=== PATIENT | female | born 1940 | race Caucasian/White ===

== ENCOUNTER 2018-02-13 17:10 | Emergency (ER) | payer OTHER ==
[~2018-02-13] VITALS: Ht 152.4 cm; Wt 94.3 kg
[~2018-02-13 17:10] MED LIST: NOHOMEMEDS
[2018-02-13 19:45] LABS: APPEARANCE CLOUDY ((CLEAR)); BILIRUBIN NEGATIVE; BLOOD MODERATE; COLOR YELLOW ((YELLOW)); GLUCOSE (STRIP) NEGATIVE; KETONES NEGATIVE; LEUKOCYTES LARGE; NITRITE NEGATIVE; PROTEIN (STRIP) 100; SPECIFIC GRAVITY 1.014 (1.000-1.030); UROBILINOGEN 0.2 MG/DL (0.2-1.0)
[2018-02-13 20:07] LABS: BACTERIA RARE /HPF; EPITHELIAL CELLS RARE /HPF; MUCUS TRACE /LPF; RED BLOOD CELLS 40-50 /HPF (0-5); WHITE BLOOD CELLS TNTC /HPF (0-5)
[2018-02-13 20:09] LABS: HEMATOCRIT 39.8 % (36.0-46.0); HEMOGLOBIN 13.5 G/DL (11.9-15.5); MCH 29.3 PG (29.0-34.0); MCHC 33.9 G/DL (30.0-36.0); MCV 86.5 FL (83-99); PLATELET COUNT 219 K/uL (156-360); RBC DIS.WIDTH-CV 13.6 % (11.8-14.6); RBC DIS.WIDTH-SD 42.3 % (39-53); WHITE BLOOD COUNT 8.9 K/uL (4.1-10.2)
[2018-02-13 20:26] LABS: CHLORIDE 102 mEq/L (99-109); POTASSIUM 4.5 mEq/L (3.7-5.4); SODIUM 139 mEq/L (136-147)
[2018-02-13 20:28] LABS: GLUCOSE 164 mg/dL (70-99)
[2018-02-13 20:32] LABS: CREATININE 0.8 mg/dL (0.6-1.3); GFR ESTIMATE (CALCULATED) > 59 mL/min/
[2018-02-13 20:35] LABS: UREA NITROGEN (BUN) 18 mg/dL (9-23)
[2018-02-13] MEDS ORDERED: BACTRIM,SEPT1 TABLET PO (21:01)
[2018-02-13] MEDS ORDERED: MECLIZINE HCL25 MG PO (21:01)
[2018-02-13 21:20] VITALS: BP 125/79
== END 2018-02-13 21:33 | disposition home or self-care (01) ==
LOC: EME 17:10
PROVIDERS: Physician Assistant
DX: R42 Dizziness and giddiness (principal); N39.0 Urinary tract infection, site not specified; I10 Essential (primary) hypertension; H35.30 Unspecified macular degeneration
CPT/HCPCS: 70450; 80048; 81003; 85027; 87086; 99281; 99284

== ENCOUNTER → 2018-03-28 | Outpatient (CLI) | payer OTHER ==
[~2018-03-28] MED LIST changes: +BACTRIM,SEPT1 TABLET PO; +MECLIZINE HCL25 MG PO
== END | disposition home or self-care (01) ==
LOC: EKG 03-24 13:00
DX: I70.0 Atherosclerosis of aorta (principal); I51.89 Other ill-defined heart diseases
CPT/HCPCS: 93306